=== PATIENT | female | born 1960 | race Caucasian/White ===

== ENCOUNTER 2017-07-04 22:00 | Inpatient (IN) | payer OTHER ==
[~2017-07-04] VITALS: Ht 170.2 cm; Wt 72.3 kg
[2017-07-04] MEDS ORDERED: CITA10TA8 PO (23:55)
[2017-07-05 00:20] LABS: MEAN CORPUSCULAR HEMOGLOBIN 31.7 pg (27.0-34.8); MEAN CORPUSCULAR HGB CONC 33.4 g/dL (32.4-35.8); MEAN CORPUSCULAR VOLUME 94.8 fL (80-100); MEAN PLATELET VOLUME 8.8 fL (7.4-10.4); PLATELET COUNT 149 x10^3/uL (130-400); RED CELL DISTRIBUTION WIDTH 13.8 % (9.6-15.2)
[2017-07-05] MEDS ORDERED: SODIUM CHLORIDE 0.9% 1,000ML IVBOLUS ONE ×3 (00:30→06:00)
[2017-07-05 00:34] LABS: ALANINE AMINOTRANSFERASE 29 U/L (12-78); ALBUMIN 2.6 g/dL (3.4-5.0); ANION GAP 13 mmol/L (5-15); CALCIUM 7.2 mg/dL (8.5-10.1); CHLORIDE 104 mmol/L (98-107)
[2017-07-05 00:38] LABS: ALKALINE PHOSPHATASE 51 U/L (45-117); BILIRUBIN,TOTAL 0.6 mg/dL (0.2-1.0); TOTAL PROTEIN 6.2 g/dL (6.4-8.2); TROPONIN I 0.016 ng/mL (0.000-0.045)
[2017-07-05 00:41] LABS: MICROSCOPIC INDICATED
[2017-07-05 00:42] LABS: CULTURE INDICATED? YES
[2017-07-05] MEDS ORDERED: PIPERACILLIN/TAZO/PMX 3.375GM 50 ML ONE (00:43)
[2017-07-05] MEDS ORDERED: DEXTROSE 50%, 50ML SYRINGE IVPush ONE (01:00)
[2017-07-05] MEDS ORDERED: VANCOMYCIN PMX 1GM/200ML 200 ML IV ONE (01:00)
[2017-07-05] MEDS ORDERED: PIPERACILLIN/TAZO/PMX 3.375GM 50 ML IVPB ONE (01:00)
[2017-07-05] MEDS ORDERED: VANCOMYCIN PER PHARMACY IV ONE (01:00)
[2017-07-05 01:11] LABS: MONOSCREEN Negative (Negative)
[2017-07-05 01:18] LABS: BASOPHILS % (AUTO) 0 % (0-1); EOSINOPHILS # (AUTO) 0.01 x10^3/uL (0-0.4); EOSINOPHILS % (AUTO) 0 % (1-7); LYMPHOCYTES # (AUTO) 0.29 x10^3/uL (1-3.4); LYMPHOCYTES % (AUTO) 1 % (22-44); MD SCAN; MONOCYTES # (AUTO) 0.08 x10^3/uL (0.2-0.8); MONOCYTES % (AUTO) 0 % (2-9); NEUTROPHILS # (AUTO) 22.66 x10^3/uL (1.8-6.8); NEUTROPHILS % (AUTO) 98 % (42-75)
[2017-07-05] MEDS ORDERED: SODIUM CHLORIDE 0.9% 1,000 ML IV ONE (02:03)
[2017-07-05 02:29] LABS: RAPID INFLUENZA A Negative (Negative); RAPID INFLUENZA B Negative (Negative)
[2017-07-05] MEDS ORDERED: ONDANSETRON 2MG/ML, 2ML IVPush PRN (02:30)
[2017-07-05] MEDS: PIPERACILLIN/TAZO/PMX 3.375GM 50 ML IV SCH ×3 (03:27→20:29)
[2017-07-05] MEDS: SODIUM CHLORIDE 0.9% 1,000 ML IV SCH ×2 (03:27→10:39)
[2017-07-05] MEDS ORDERED: TEMAZEPAM 15 MG CAPSULE PO PRN (03:30)
[2017-07-05] MEDS ORDERED: VANCOMYCIN PER PHARMACY MC PRN (03:30)
[2017-07-05 03:36] LABS: OCCULT BLOOD NEGATIVE (NEGATIVE)
[2017-07-05 03:58] LABS: STOOL FOR LEUKOCYTES FEW (2-5/HPF) (NEGATIVE)
[2017-07-05] MEDS ORDERED: PHARMACOKINETIC MONITORING MC PRN (04:00)
[2017-07-05 04:02] LABS: CLOSTRIDIUM DIFFICILE ANTIGEN NEGATIVE; CLOSTRIDIUM DIFFICILE TOXIN NEGATIVE (Negative)
[2017-07-05] MEDS: HEPARIN 5,000 UNITS/ML, 1ML SQ SCH ×3 (04:14→20:29)
[2017-07-05 04:22] VITALS: BP 92/53
[2017-07-05 04:33] LABS: MEAN CORPUSCULAR HEMOGLOBIN 31.8 pg (27.0-34.8); MEAN CORPUSCULAR HGB CONC 33.5 g/dL (32.4-35.8); MEAN CORPUSCULAR VOLUME 94.7 fL (80-100); MEAN PLATELET VOLUME 8.9 fL (7.4-10.4); PLATELET COUNT 138 x10^3/uL (130-400); RED BLOOD COUNT 4.02 x10^6/uL (3.82-5.3); RED CELL DISTRIBUTION WIDTH 14.4 % (9.6-15.2)
[2017-07-05 04:42] LABS: ANION GAP 9 mmol/L (5-15); CALCIUM 6.2 mg/dL (8.5-10.1); CHLORIDE 109 mmol/L (98-107); CREATININE 2.31 mg/dL (0.55-1.02)
[2017-07-05 04:44] LABS: CREATINE KINASE, TOTAL 560 U/L (26-192)
[2017-07-05 04:57] LABS: MD YES
[2017-07-05 05:46] LABS: BAND#(MANUAL) 7.06 x10^3/uL; BANDS%(MANUAL) 36 % (0-7); EOS% (MANUAL) 1 % (1-7); LYMPHS% (MANUAL) 1 % (22-44); METAMYELOCYTES# (MANUAL) 2.94 x10^3/uL (0-0); METAMYELOCYTES% (MANUAL) 15 % (0-1); MONOS#(MANUAL) 0.39 x10^3/uL (0.3-2.7); MONOS% (MANUAL) 2 % (2-9); MYELOCYTES% (MANUAL) 1 % (0-0); SEG#(MANUAL) 8.62 x10^3/uL (1.8-6.8); SEGS% (MANUAL) 44 % (42-75)
[2017-07-05 05:47] LABS: <PLATELET ESTIMATE> ADEQUATE; <PLT MORPHOLOGY> NORMAL PLT MORPH; <RBC MORPHOLOGY> NORMAL; PMNS WITH VACUOLES 2+
[2017-07-05] MEDS: ESOMEPRAZOLE 40 MG IV IVPush SCH (08:13)
[2017-07-05] MEDS: ACETAMINOPHEN 325 MG TABLET PO PRN ×2 (10:26→17:34)
[2017-07-05] MEDS: ONDANSETRON ODT 4 MG PO PRN (10:26)
[2017-07-05] MEDS: FLUCONAZOLE 200 MG/100 ML 100 ML IV SCH (10:31)
[2017-07-05] MEDS: ONDANSETRON 2MG/ML, 2ML IVPush PRN (17:34)
[2017-07-05] MEDS ORDERED: MORPHINE SULFATE 4 MG/ML, 1ML ONE (18:47)
[2017-07-05] MEDS: morphine SULFATE 10 MG/ML, 1ML IVPush PRN (18:56)
[2017-07-06] MEDS: ACETAMINOPHEN 325 MG TABLET PO PRN ×3 (00:57→17:40)
[2017-07-06] MEDS ORDERED: POTASSIUM CHLORIDE 40 MEQ in SODIUM CHLORIDE 0.9% 1,000 ML IV SCH (03:17)
[2017-07-06 04:00] VITALS: BP 99/52
[2017-07-06] MEDS: PIPERACILLIN/TAZO/PMX 3.375GM 50 ML IV SCH ×3 (04:14→20:24)
[2017-07-06] MEDS: morphine SULFATE 10 MG/ML, 1ML IVPush PRN ×2 (04:14→16:34)
[2017-07-06] MEDS: HEPARIN 5,000 UNITS/ML, 1ML SQ SCH ×3 (04:15→20:24)
[2017-07-06] MEDS: ONDANSETRON 2MG/ML, 2ML IVPush PRN ×3 (04:23→16:34)
[2017-07-06 05:22] LABS: ALANINE AMINOTRANSFERASE 35 U/L (12-78); ANION GAP 7 mmol/L (5-15); CALCIUM 6.6 mg/dL (8.5-10.1); CHLORIDE 113 mmol/L (98-107); CREATININE 0.83 mg/dL (0.55-1.02)
[2017-07-06 05:23] LABS: ALKALINE PHOSPHATASE 62 U/L (45-117); BILIRUBIN,TOTAL 0.5 mg/dL (0.2-1.0); VANCOMYCIN,RANDOM 3.9 mcg/mL
[2017-07-06 05:27] LABS: MEAN CORPUSCULAR HGB CONC 34.2 g/dL (32.4-35.8); MEAN CORPUSCULAR VOLUME 93.4 fL (80-100); MEAN PLATELET VOLUME 8.6 fL (7.4-10.4); PLATELET COUNT 112 x10^3/uL (130-400); RED BLOOD COUNT 3.38 x10^6/uL (3.82-5.3); RED CELL DISTRIBUTION WIDTH 14.4 % (9.6-15.2)
[2017-07-06] MEDS: NS + 40MEQ KCL 1,000 ML IV SCH ×2 (05:50→11:04)
[2017-07-06 05:51] LABS: MD YES
[2017-07-06 05:53] LABS: <RBC MORPHOLOGY> NORMAL; BAND#(MANUAL) 2.41 x10^3/uL; BANDS%(MANUAL) 19 % (0-7); EOS#(MANUAL) 0.51 x10^3/uL (0.0-0.4); EOS% (MANUAL) 4 % (1-7); LYMPH#(MANUAL) 0.38 x10^3/uL (1-3.4); LYMPHS% (MANUAL) 3 % (22-44); MONOS#(MANUAL) 0.13 x10^3/uL (0.3-2.7); MONOS% (MANUAL) 1 % (2-9); PMNS WITH VACUOLES 1+; SEG#(MANUAL) 9.27 x10^3/uL (1.8-6.8); SEGS% (MANUAL) 73 % (42-75)
[2017-07-06 05:54] LABS: <PLATELET ESTIMATE> ADEQUATE; <PLT MORPHOLOGY> NORMAL PLT MORPH
[2017-07-06] MEDS ORDERED: VANCOMYCIN 1,300 MG in SODIUM CHLORIDE 0.9% 250 ML IV SCH (06:00)
[2017-07-06] MEDS ORDERED: MAGNESIUM SULFATE PMX 4GM/100M 100 ML IV ONE (08:00)
[2017-07-06] MEDS ORDERED: POTASSIUM CHLORIDE 20 MEQ TAB.ER.PRT PO ONE (08:00)
[2017-07-06] MEDS ORDERED: POTASSIUM PHOSPHATE 44 MEQ in SODIUM CHLORIDE 0.9% 500 ML IV ONE (08:00)
[2017-07-06] MEDS: ESOMEPRAZOLE 40 MG IV IVPush SCH (09:17)
[2017-07-06] MEDS: FLUCONAZOLE 200 MG/100 ML 100 ML IV SCH (09:30)
[2017-07-06 14:46] LABS: CRYPTOSPORIDIUM ANTIGEN Negative (Negative)
[2017-07-06] MEDS: VANCOMYCIN 1,300 MG in SODIUM CHLORIDE 0.9% 250 ML IV SCH (17:34)
[2017-07-07] MEDS: ACETAMINOPHEN 325 MG TABLET PO PRN ×2 (00:12→08:37)
[2017-07-07 04:00] VITALS: BP 102/56
[2017-07-07] MEDS: PIPERACILLIN/TAZO/PMX 3.375GM 50 ML IV SCH ×3 (04:03→19:45)
[2017-07-07] MEDS: HEPARIN 5,000 UNITS/ML, 1ML SQ SCH ×3 (04:03→19:45)
[2017-07-07 05:07] LABS: MEAN CORPUSCULAR HEMOGLOBIN 31.7 pg (27.0-34.8); MEAN CORPUSCULAR HGB CONC 33.5 g/dL (32.4-35.8); MEAN CORPUSCULAR VOLUME 94.7 fL (80-100); MEAN PLATELET VOLUME 9.1 fL (7.4-10.4); PLATELET COUNT 105 x10^3/uL (130-400); RED BLOOD COUNT 3.43 x10^6/uL (3.82-5.3)
[2017-07-07 05:10] LABS: ANION GAP 7 mmol/L (5-15); CALCIUM 7.5 mg/dL (8.5-10.1); CHLORIDE 118 mmol/L (98-107)
[2017-07-07 05:37] LABS: MD YES
[2017-07-07 05:39] LABS: BANDS%(MANUAL) 4 % (0-7); BASOS% (MANUAL) 1 % (0-1); EOS% (MANUAL) 3 % (1-7); LYMPH#(MANUAL) 0.91 x10^3/uL (1-3.4); LYMPHS% (MANUAL) 9 % (22-44); MONOS% (MANUAL) 3 % (2-9); SEG#(MANUAL) 8.08 x10^3/uL (1.8-6.8); SEGS% (MANUAL) 80 % (42-75)
[2017-07-07 05:42] LABS: <PLATELET ESTIMATE> DECREASED; <PLT MORPHOLOGY> NORMAL PLT MORPH; <RBC MORPHOLOGY> NORMAL
[2017-07-07 05:43] LABS: PMNS WITH VACUOLES 1+; TOXIC GRAN 1+
[2017-07-07] MEDS ORDERED: NS + 40MEQ KCL 1,000 ML IV SCH (06:00)
[2017-07-07] MEDS: ONDANSETRON 2MG/ML, 2ML IVPush PRN (06:12)
[2017-07-07] MEDS: ESOMEPRAZOLE 40 MG IV IVPush SCH (08:28)
[2017-07-07] MEDS ORDERED: SODIUM CHLORIDE 0.9% 1,000 ML IV SCH (09:30)
[2017-07-07] MEDS ORDERED: SODIUM PHOSPHATE 30 MMOL in SODIUM CHLORIDE 0.9% 500 ML IV ONE (09:30)
[2017-07-07] MEDS: FLUCONAZOLE 200 MG/100 ML 100 ML IV SCH (09:48)
[2017-07-07] MEDS: FLORASTOR 250 MG CAPSULE PO SCH ×2 (09:49→19:45)
[2017-07-07] MEDS: CITALOPRAM 20 MG TABLET PO SCH (12:12)
[2017-07-07] MEDS: ONDANSETRON ODT 4 MG PO PRN ×2 (12:15→16:51)
[2017-07-07] MEDS: VANCOMYCIN 1,300 MG in SODIUM CHLORIDE 0.9% 250 ML IV SCH (12:44)
[2017-07-07 19:35] VITALS: BP 113/69
[2017-07-07] MEDS ORDERED: PROMETHAZINE 25 MG/ML, 1ML IM ONE (21:00)
[2017-07-08 01:50] VITALS: BP 131/76
[2017-07-08] MEDS: PIPERACILLIN/TAZO/PMX 3.375GM 50 ML IV SCH ×3 (03:57→19:43)
[2017-07-08] MEDS: HEPARIN 5,000 UNITS/ML, 1ML SQ SCH ×3 (03:57→19:43)
[2017-07-08] MEDS: VANCOMYCIN 1,300 MG in SODIUM CHLORIDE 0.9% 250 ML IV SCH (05:56)
[2017-07-08 05:58] LABS: CALCIUM 7.7 mg/dL (8.5-10.1)
[2017-07-08 06:12] VITALS: BP 122/72
[2017-07-08 06:33] LABS: ANION GAP 11 mmol/L (5-15); CHLORIDE 111 mmol/L (98-107); CREATININE 0.58 mg/dL (0.55-1.02)
[2017-07-08] MEDS ORDERED: SODIUM PHOSPHATE 4 MEQ/ML IV SCH (07:00)
[2017-07-08] MEDS ORDERED: SODIUM PHOSPHATE 30 MMOL in SODIUM CHLORIDE 0.9% 500 ML IV ONE (07:30)
[2017-07-08] MEDS: CITALOPRAM 20 MG TABLET PO SCH (08:44)
[2017-07-08] MEDS: FLORASTOR 250 MG CAPSULE PO SCH ×2 (08:44→19:43)
[2017-07-08] MEDS: ONDANSETRON ODT 4 MG PO PRN (08:44)
[2017-07-08] MEDS: ESOMEPRAZOLE 40 MG IV IVPush SCH (08:44)
[2017-07-08] MEDS: FLUCONAZOLE 200 MG/100 ML 100 ML IV SCH (10:00)
[2017-07-08 15:20] VITALS: BP 121/79
[2017-07-08 19:48] VITALS: BP 133/82
[2017-07-08] MEDS ORDERED: OMNIPAQUE 350 MG/ML, 100ML BOTTLE ONE (20:08)
[2017-07-09 02:42] VITALS: BP 147/89
[2017-07-09] MEDS: HEPARIN 5,000 UNITS/ML, 1ML SQ SCH ×3 (04:03→20:43)
[2017-07-09] MEDS: PIPERACILLIN/TAZO/PMX 3.375GM 50 ML IV SCH (04:03)
[2017-07-09 05:53] LABS: ANION GAP 10 mmol/L (5-15); CALCIUM 7.5 mg/dL (8.5-10.1); CHLORIDE 107 mmol/L (98-107); CREATININE 0.52 mg/dL (0.55-1.02)
[2017-07-09 05:54] LABS: BASOPHILS # (AUTO) 0.03 x10^3/uL (0-0.1); BASOPHILS % (AUTO) 0 % (0-1); EOSINOPHILS # (AUTO) 0.53 x10^3/uL (0-0.4); EOSINOPHILS % (AUTO) 6 % (1-7); LYMPHOCYTES # (AUTO) 2.96 x10^3/uL (1-3.4); LYMPHOCYTES % (AUTO) 31 % (22-44); MD NO; MEAN CORPUSCULAR HEMOGLOBIN 31.6 pg (27.0-34.8); MEAN CORPUSCULAR HGB CONC 34.4 g/dL (32.4-35.8); MEAN CORPUSCULAR VOLUME 91.7 fL (80-100); MEAN PLATELET VOLUME 8.1 fL (7.4-10.4); MONOCYTES # (AUTO) 0.78 x10^3/uL (0.2-0.8); MONOCYTES % (AUTO) 8 % (2-9); NEUTROPHILS # (AUTO) 5.31 x10^3/uL (1.8-6.8); NEUTROPHILS % (AUTO) 55 % (42-75); PLATELET COUNT 181 x10^3/uL (130-400); RED BLOOD COUNT 3.59 x10^6/uL (3.82-5.3); RED CELL DISTRIBUTION WIDTH 15.1 % (9.6-15.2)
[2017-07-09 07:17] VITALS: BP 134/80
[2017-07-09] MEDS ORDERED: POTASSIUM CHLORIDE 10 MEQ TABLET.ER ONE (07:28)
[2017-07-09] MEDS ORDERED: PANTOPRAZOLE 40 MG IV IVPush SCH (07:30)
[2017-07-09] MEDS ORDERED: POTASSIUM CHLORIDE 20 MEQ TAB.ER.PRT PO ONE ×2 (07:30→11:00)
[2017-07-09] MEDS: CITALOPRAM 20 MG TABLET PO SCH (08:09)
[2017-07-09] MEDS: FLORASTOR 250 MG CAPSULE PO SCH ×2 (08:09→20:43)
[2017-07-09] MEDS ORDERED: PANTOPROZOLE 40MG TABLET PO SCH (13:27)
[2017-07-09 13:57] VITALS: BP 121/77
[2017-07-09 19:53] VITALS: BP 126/74
[2017-07-10] MEDS: HEPARIN 5,000 UNITS/ML, 1ML SQ SCH ×2 (03:34→10:25)
[2017-07-10 03:58] VITALS: BP 130/72
[2017-07-10 05:54] LABS: BASOPHILS # (AUTO) 0.06 x10^3/uL (0-0.1); BASOPHILS % (AUTO) 1 % (0-1); EOSINOPHILS # (AUTO) 0.63 x10^3/uL (0-0.4); EOSINOPHILS % (AUTO) 6 % (1-7); LYMPHOCYTES # (AUTO) 3.45 x10^3/uL (1-3.4); LYMPHOCYTES % (AUTO) 31 % (22-44); MD NO; MEAN CORPUSCULAR HEMOGLOBIN 31.7 pg (27.0-34.8); MEAN CORPUSCULAR HGB CONC 34.6 g/dL (32.4-35.8); MEAN CORPUSCULAR VOLUME 91.7 fL (80-100); MEAN PLATELET VOLUME 8.1 fL (7.4-10.4); MONOCYTES # (AUTO) 0.86 x10^3/uL (0.2-0.8); MONOCYTES % (AUTO) 8 % (2-9); NEUTROPHILS # (AUTO) 5.97 x10^3/uL (1.8-6.8); NEUTROPHILS % (AUTO) 54 % (42-75); PLATELET COUNT 269 x10^3/uL (130-400); RED BLOOD COUNT 3.51 x10^6/uL (3.82-5.3); RED CELL DISTRIBUTION WIDTH 14.7 % (9.6-15.2)
[2017-07-10 06:02] LABS: ALBUMIN 2.4 g/dL (3.4-5.0); ANION GAP 7 mmol/L (5-15); CALCIUM 7.4 mg/dL (8.5-10.1); CHLORIDE 106 mmol/L (98-107)
[2017-07-10 06:30] LABS: ALANINE AMINOTRANSFERASE 186 U/L (12-78); ALKALINE PHOSPHATASE 127 U/L (45-117); BILIRUBIN,TOTAL 0.7 mg/dL (0.2-1.0); CREATININE 0.45 mg/dL (0.55-1.02); TOTAL PROTEIN 5.7 g/dL (6.4-8.2)
[2017-07-10] MEDS ORDERED: POTASSIUM CHLORIDE 20 MEQ TAB.ER.PRT PO ONE ×2 (08:00→11:00)
[2017-07-10] MEDS: CITALOPRAM 20 MG TABLET PO SCH (08:37)
[2017-07-10] MEDS: FLORASTOR 250 MG CAPSULE PO SCH (08:37)
[2017-07-10 10:26] VITALS: BP 146/88
[2017-07-10] MEDS ORDERED: AMOX1TAB12 PO (11:18)
[2017-07-10] MEDS ORDERED: AMOXICILLIN/CLAV 875-125MG TABLET PO ONE (12:00)
[2017-07-10 12:58] LABS: ANION GAP 6 mmol/L (5-15); CALCIUM 8.1 mg/dL (8.5-10.1); CHLORIDE 106 mmol/L (98-107); CREATININE 0.56 mg/dL (0.55-1.02)
== END 2017-07-10 13:35 | disposition home or self-care (01) | DRG 871 ==
LOC: ED 07-05 02:10 → EDIP 07-05 02:36 → ICU 07-05 03:41 → 3NE 07-07 17:40 → DCLOUNGE 07-10 13:15
PROVIDERS: ADMIT Internal Medicine; ATTEND Internal Medicine
DX: A41.9 Sepsis, unspecified organism (principal); N17.0 Acute kidney failure with tubular necrosis; R65.21 Severe sepsis with septic shock; M62.82 Rhabdomyolysis; G62.9 Polyneuropathy, unspecified; A09 Infectious gastroenteritis and colitis, unspecified; B37.3 Candidiasis of vulva and vagina; E86.0 Dehydration; F32.9 Major depressive disorder, single episode, unspecified
CPT/HCPCS: 36415; 71045; 74177; 76700; 80048; 80053; 80202; 81001; 82272; 82533; 82550; 82607; 83605; 83735; 84100; 84145; 84484; 85025; 86308; 86703; 87040; 87046; 87081; 87086; 87324; 87328; 87329; 87400; 87798; 87880; 87899; 89055; 93970; 96365; 96367; 96375; J1644; J2405; J2543; J2550; J3370; Q0162; Q9967; C9113; G0435; J1450; J2270; J3475; J3480; J7030; J7040; J7050